=== PATIENT | male | born 1965 | race Caucasian/White ===

== ENCOUNTER 2020-02-26 13:46 | Emergency (ER) | payer MEDICAID, MEDICARE, OTHER ==
[~2020-02-26] VITALS: Ht 177.8 cm; Wt 75.0 kg
[2020-02-26 13:53] VITALS: BP 132/99
--- NOTE | 2020-02-26 13:56 | NUR ---
PT RESTING IN BED. VSS.
== END 2020-02-26 14:21 | disposition home or self-care (01) ==
LOC: ED 14:15
DX: L03.211 Cellulitis of face (principal)
CPT/HCPCS: 99283